=== PATIENT | female | born 1950 ===

== ENCOUNTER 2022-03-04 10:13 | Outpatient (CLI) | payer OTHER | END 2022-03-04 10:18 | disposition home or self-care (01) | LOC: RAD 10:13 | DX: R07.9 Chest pain, unspecified (principal); Z01.818 Encounter for other preprocedural examination; S83.242A Other tear of medial meniscus, current injury, left knee, initial encounter ==

== ENCOUNTER 2023-06-22 05:30 | Day surgery (SDC) | payer OTHER ==
[~2023-06-22 05:30] MED LIST: NORVASC5 MG PO
[2023-06-22] MEDS ORDERED: CEFAZOLIN SODIUM 1,000 MG VIAL ONE ×2 (06:57→10:19)
[2023-06-22] MEDS ORDERED: CEFAZOLIN SODIUM 1,000 MG VIAL IV ONE (08:30)
[2023-06-22] MEDS ORDERED: BUPIVACAINE HCL 30 ML VIAL IJ ONE (08:30)
[2023-06-22] MEDS ORDERED: FAMOTIDINE/PF 20 MG/10 ML SYRINGE IV SCH (09:15)
[2023-06-22] MEDS ORDERED: CEFAZOLIN SODIUM 1,000 MG VIAL IV SCH (09:15)
[2023-06-22] MEDS ORDERED: FAMOTIDINE/PF 20 MG/2 ML VIAL ONE (10:19)
== END 2023-06-22 11:45 | disposition home or self-care (01) ==
LOC: CIR.AMB 05:30
PROVIDERS: ATTEND Specialist
DX: K80.10 Calculus of gallbladder with chronic cholecystitis without obstruction (principal); E11.9 Type 2 diabetes mellitus without complications; I10 Essential (primary) hypertension